=== PATIENT | male | born 1995 | race Caucasian/White ===

== ENCOUNTER 2017-12-09 06:22 | Day surgery (SDC) | payer BC ==
[~2017-12-09] VITALS: Ht 167.6 cm; Wt 73.0 kg
[~2017-12-09 06:22] MED LIST: DILANTIN100 MG PO; KEPPRA500 MG PO; MEN'S MULTIVI200 MCG PO; MOTRIN600 MG PO; OXTELLAR XR300 MG PO; ZONISAMIDE100 MG PO
[2017-12-09 06:59] VITALS: BP 108/62
[2017-12-09 11:15] VITALS: BP 118/56
[2017-12-09 12:20] VITALS: BP 129/72
== END 2017-12-09 12:47 | disposition home or self-care (01) ==
LOC: SDC 06:22
DX: H33.21 Serous retinal detachment, right eye (principal); G40.909 Epilepsy, unspecified, not intractable, without status epilepticus
CPT/HCPCS: J0690; J0713; J2250; J3010